=== PATIENT | female | born 1955 | race Caucasian/White ===

== ENCOUNTER 2019-11-14 10:06 | Day surgery (SDC) | payer OTHER ==
[~2019-11-14] VITALS: Ht 157.5 cm; Wt 86.2 kg
[~2019-11-14 10:06] MED LIST: ATEN-166 PO; ONDANSETRON HCL 4 MG/2 ML VIAL IVP PRN; fentaNYL CITRATE/PF 100 MCG/2 ML AMP IVP PRN
[2019-11-14] MEDS ORDERED: LR 1,000 ML IV.SOLN IV ONE (13:35)
[2019-11-14] MEDS ORDERED: TETRACAINE HCL/PF 0.5% OPHTHALMIC DROPS 4 ML OP ONE (13:35)
[2019-11-14] MEDS ORDERED: KETOROLAC TROMETHAMINE 30 MG VIAL ONE (13:35)
[2019-11-14] MEDS ORDERED: SEVOFLURANE 15 MIN GAS INH ONE (13:35)
[2019-11-14] MEDS ORDERED: MIDAZOLAM HCL 5 MG/ML VIAL (VERSED) IV ONE (13:35)
[2019-11-14] MEDS ORDERED: ONDANSETRON HCL 4 MG/2 ML VIAL ONE (13:35)
[2019-11-14] MEDS ORDERED: NS IRRIG SOLN 5000 ML IR ONE (13:35)
[2019-11-14] MEDS ORDERED: fentaNYL CITRATE/PF 100 MCG/2 ML AMP ONE (13:35)
[2019-11-14] MEDS ORDERED: OXYCODONE/ACETAMINOPHEN 5-325 TABLET PO PRN ×2 (13:45)
[2019-11-14] MEDS ORDERED: IBUPROFEN 800 MG TABLET PO PRN (13:45)
[2019-11-14] MEDS ORDERED: ONDANSETRON HCL 4 MG/2 ML VIAL IM PRN (13:45)
[2019-11-14 14:28] VITALS: BP_SYST 124
== END 2019-11-14 15:00 | disposition home or self-care (01) ==
LOC: SDS 10:06 → SMU 10:08 → SDS 15:00
PROVIDERS: ATTEND Obstetrics & Gynecology
DX: N95.0 Postmenopausal bleeding (principal); R93.89 Abnormal findings on diagnostic imaging of other specified body structures; I10 Essential (primary) hypertension; G47.30 Sleep apnea, unspecified; E78.2 Mixed hyperlipidemia; Z79.899 Other long term (current) drug therapy; Z88.8 Allergy status to other drugs, medicaments and biological substances
CPT/HCPCS: 36415; 58558; 86886; 86900; 86901; 88305; C1819; J1885; J2250; J2405; J3010; J7120